=== PATIENT | female | born 1980 | race Caucasian/White ===

== ENCOUNTER 2017-07-08 08:13 | Inpatient (IN) | payer OTHER ==
[~2017-07-08] VITALS: Ht 162.6 cm; Wt 78.0 kg
--- NOTE | 2017-07-08 09:08 | History & Physical ---
General Information and HPI MD Statement: I have seen and personally examined JOSE CRUZ BREWSETR and documented this H&P. The patient is a 37 year old female at [39] weeks and [6] days gestation who presented with a chief complaint of [CTXS]. Source of Information: patient Exam Limitations: no limitations History of Present Illness: 37 yo, , at 39 6/7wks, c/o cxts sicne this AM, also some LOF since 2017, very small amount. reports GFM,amnisure positive. care started at 9 wks, uncomplicated thus far. AMA, GBS negative. 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 Para: 1 Last Menstrual Period: 09/26/2016 Estimated Delivery Date: 07/09/2017 Past dog daycare provider History: non-contributory Past Pregnancies Past Pregnancies: Date of Delivery: 01/2010 Weight: [id number] Type of Delivery: vaginal Anesthesia: epidural Medical History Blood Transfusion Hx: No Neurological: seizure (as a child around 14 y) EENT: NONE Cardiovascular: NONE Respiratory: NONE Gastrointestinal: NONE Hepatic: NONE Renal: NONE Musculoskeletal: NONE Psychiatric: NONE Endocrine: NONE Blood Disorders: NONE Cancer(s): NONE REAL ESTATE ADMINISTRATIVE ASSISTANT/Reproductive: NONE Surgical History Pertinent Surgical History: non-contributory Past Family/Social History Psychosocial History Where do you live? Home Smoking Status: Never Smoked ETOH Use: denies use Illicit Drug Use: denies illicit drug use Review of Systems Review of Systems Constitutional: Reports: no symptoms. EENTM: Reports: no symptoms. Cardiovascular: Reports: no symptoms. Respiratory: Reports: no symptoms. GI: Reports: no symptoms. Genitourinary: Reports: see HPI. Musculoskeletal: Reports: no symptoms. Skin: Reports: no symptoms. Neurological/Psychological: Reports: no symptoms. Hematologic/Endocrine: Reports: no symptoms. Immunologic/Allergic: Reports: see HPI. All Other Systems: Reviewed and Negative Post Menopausal: No Exam & Diagnostic Data Obstetric Exam Wgt Gained During : 37lbs Pelvimetry: tested [id number] Dilation (cm): 2 Effacement (%): 80 Station: 0 Membranes: SROM Fluid: clear Fundal Height (cm): 39 Multiple Gestation? No Contractions: irregular Infant #1 - FHR Baseline: 140 Category: 1 Estimated Weight: 3500g Presentation: vertex Patient for Induction? No Physical Exam: VSS General: NAD Abdomen: gravid, soft, nontender. Ext: DCT (-) Labs Blood Type & Rh: A positive Antibody Screen: negative Hct/Hgb & Platelets #1: 13/41.8%,PLT [id number] Hct/Hgb & Platelets #2: 12.1/38.7%,[id number] Rubella: immune VDRL #1: negative VDRL #2: negative HbsAg: negative HIV #1: negative HIV #2 negative 1 Hr P Group B Strep: negative Initial Ultrasound: IUP at 9 wks Anatomy Ultrasound: nl Genetic Testing: declined Last 24 Hrs of Labs/Christian: Laboratory Tests 07/08/17 0835: Membrane Rupture POSITIVE, Urine Color YEL, Urine Clarity CLEAR, Urine pH 6.0, Ur Specific [place] 1.015, Urine Protein NEG, Urine Ketones NEG, Urine Nitrite NEG, Urine Bilirubin NEG, Urine Urobilinogen 0.2, Ur Leukocyte Esterase NEG, Ur Microscopic SEDIMENT EXAMINED, Urine RBC 1-3, Urine WBC 1-3 H, Ur Epithelial Cells MANY H, Urine Bacteria FEW H, Urine Mucus RARE, Urine Hemoglobin TRACE-LYSED, Urine Glucose NEG Assessment/Plan Assessment/Plan: 37yo, 39 6/7wks, SROM, early labor 1. admit pt, admission labs 2. ? prolonged SROM, may consider antibiotics prophylaxis 3. will condier pitocin augmentation 4. monitor closely As Ranked By This Provider Problem List: 1. 2. SROM (spontaneous rupture of membranes) Core Measures Venous Thromboembolism VTE Risk Factors / No Mechanical VTE Prophylaxis d/t LowRisk-No Interven Req'd No VTE Pharm Prophylaxis d/t LowRisk-No Intervreji Cuevas'linda Attending MD Review Statement Attending Statement Attending MD Statement: examined this patient, discussed w/nursing
[2017-07-08 09:33] LABS: ABSOLUTE BASOPHIL COUNT 0 /CUMM (0.0-0.2); ABSOLUTE EOSINOPHIL COUNT 0 /CUMM (0.0-0.7); ABSOLUTE GRANULOCYTE CT 7.2 /CUMM (1.4-6.5); ABSOLUTE LYMPH COUNT 1.6 /CUMM (1.2-3.4); ABSOLUTE MONOCYTE COUNT 0.5 /CUMM (0.10-0.60); BASOPHIL % 0.4 % (0.0-2.0); EOSINOPHIL % 0.5 % (0-5); GRANULOCYTE % 76.8 % (42.2-75.2); HEMATOCRIT 35.9 % (37-47); MEAN CORPUSCULAR HGB 28.6 PG (27.0-31.0); MEAN CORPUSCULAR HGB CONC 33.6 G/DL (33.0-37.0); MEAN PLATELET VOLUME 9.6 FL (7.4-10.4); PLATELET COUNT 201 /CUMM (130-400); RBC DISTRIBUTION WIDTH 15.7 % (11.5-14.5); RED BLOOD CELL CT 4.22 /CUMM (4.20-5.40); WHITE BLOOD CELL COUNT 9.4 /CUMM (4.8-10.8)
--- NOTE | 2017-07-08 15:54 | PN- OBGYN ---
Surgical Brief Attending Note Brief Attending Note: pt c/o ctxs pain ,request epidural.pitocin at 7 mU/min on TOCO: ctxs q 2-3 min, FHR baseline 130, moderate variability, + acels, no decels cervix 6/100/0( per RN) anesthesia notified. will continue monitor closely
--- NOTE | 2017-07-08 17:36 | Labor & Delivery Summary ---
Delivery Summary Vaginal Delivery: Vaginal: vertex Episiotomy/Lacerations: Episiotomy/Lacerations: none Placenta: Placenta: spontanteous, normal, 3 vessel, nuchal cord (x_) (X1) Anesthesia: epidural Baby's Weight: 5md45be Apgars - 1 Min: 9 Apgars - 5 Min: 9 Additional Comments: Patient fully dilated, pushed well, spontaneously delivered a viable male as cephalic presentation, GABINO position, nuchal cord 1, head delivered atraumatically, followed by shoulder and rest of the body without difficulty. Baby vigorous and cried, place on mother's chest, cord clamp and cut. Placenta delivered spontaneously, intact, three-vessel cord. EBL 486 mL. Perineum intact. Patient tolerated the procedure well, laps and instruments counts were correct, patient and baby in recovery room in stable condition.
[2017-07-09 08:43] LABS: ABSOLUTE BASOPHIL COUNT 0 /CUMM (0.0-0.2); ABSOLUTE GRANULOCYTE CT 9.6 /CUMM (1.4-6.5); GRANULOCYTE % 76.8 % (42.2-75.2)
[2017-07-09 09:07] LABS: ABSOLUTE EOSINOPHIL COUNT 0.1 /CUMM (0.0-0.7); ABSOLUTE LYMPH COUNT 2.1 /CUMM (1.2-3.4); ABSOLUTE MONOCYTE COUNT 0.7 /CUMM (0.10-0.60); BASOPHIL % 0.2 % (0.0-2.0); EOSINOPHIL % 0.6 % (0-5); MEAN CORPUSCULAR HGB 28.3 PG (27.0-31.0); MEAN CORPUSCULAR HGB CONC 33.5 G/DL (33.0-37.0); MEAN CORPUSCULAR VOLUME 84.6 FL (81.0-99.0); MEAN PLATELET VOLUME 9.2 FL (7.4-10.4); PLATELET COUNT 187 /CUMM (130-400); RBC DISTRIBUTION WIDTH 16.2 % (11.5-14.5); WHITE BLOOD CELL COUNT 12.5 /CUMM (4.8-10.8)
[2017-07-09 09:11] LABS: HEMATOCRIT 28.7 % (37-47)
--- NOTE | 2017-07-09 12:36 | PN- Post Delivery/GYN ---
Subjective Subjective: PT C/O LOWER HEAD, NECK AND SHOULDER PAIN SINCE AM. S/P WET TAP FOR EPIDURAL. RECEIVING IV FLUIDS, CAFFEINE, NSAIDS AND TYLENOL, ICE PACKS AND LAYING FLAT WITH SOME IMPROVEMENT OF SX. DECLINES BLOOD PATCH. AMB / VOID / MARJORIE PO. Objective Last 24 Hrs of Vital Signs/I&O AFEB, V/SS Physical Exam: NAD ABD SOFT NT FF BELOW UMB ELIECER MIN LOCHIA EXT NT NO EDEMA Current Medications: Current Medications Sig/Catie Start time Last Medication Dose Route Stop Time Status Admin Acetaminophen 1,000 MG Q6P PRN 07/08 2345 AC 07/09 N/A 1 UNIT IV 1031 Acetaminophen 650 MG Q4P PRN 07/08 184 AC PO Butorphanol Tartrate 1 MG Q4P PRN 07/08 0915 DC 07/08 IV 1114 Butorphanol Tartrate 1 MG Q4P PRN 07/08 0915 DC 07/08 IM 1118 Chloroprocaine HCl 30 ML .STK-MED ONE 07/08 1608 DC IV 07/08 1609 Docusate Sodium 100 MG BID PRN 07/08 184 AC PO Guaifenesin 10 ML Q4P PRN 07/08 2345 AC 07/09 PO 0818 Ibuprofen 800 MG .STK-MED ONE 07/09 0215 DC PO / 0216 Ibuprofen 800 MG Q6P PRN / 2300 AC 07/09 PO 0817 Ibuprofen 800 MG Q6P PRN / 1745 DC / PO 1738 Lactated Ringer's 1,000 ML Q6H 07/09 1030 AC 07/09 IV 1031 Lactated Ringer's 1,000 ML Q8H 07/08 0915 DC 07/08 IV 1035 Methylergonovine 0.2 MG ONCE ONE 07/08 2100 DC 07/08 Maleate IM 07/08 2101 2110 Oxycodone/ 1 TAB Q3P PRN 07/08 184 AC / Acetaminophen PO 2135 Oxytocin 20 UNITS ONCE ONE 07/08 2100 DC / Lactated Ringer's 1,000 ML IV 07/09 0459 2110 Oxytocin 20 UNITS Q5H 07/08 184 DC Lactated Ringer's 1,000 ML IV 07/08 2344 Oxytocin 30 UNITS PER PROTOCL 07/08 0815 DC 07/08 Lactated Ringer's 500 ML IV 03/06 0914 1002 Last 24 Hrs of Labs/Christian: Laboratory Tests 07/09/17 0815: CBC w Diff NO MAN DIFF REQ, RBC 3.40 L, MCV 84.6, MCH 28.3, MCHC 33.5, RDW 16.2 H, MPV 9.2, Gran % 76.8 H, Lymphocytes % 16.5 L, Monocytes % 5.9, Eosinophils % 0.6, Basophils % 0.2, Absolute Granulocytes 9.6 H, Absolute Lymphocytes 2.1, Absolute Monocytes 0.7 H, Absolute Eosinophils 0.1, Absolute Basophils 0 Microbiology 07/08 1600 URINE ROUT: Urine Culture - RES Assessment/Plan Assessment/Plan PPD 1 S/P C/B SPINAL ZHENG AND MUSCULOSKELETAL NECK AND SHOULDER PAIN -CONT CURRENT MGMT -IF NO IMPROVEMENT TOMORROW CONSIDER BLOOD PATCH -ROUTINE PP CARE
[2017-07-10] MEDS ORDERED: FERROUS SULFAT325 M3 PO (09:17)
[2017-07-10] MEDS ORDERED: IBUPROFEN800 M1 PO (09:17)
--- NOTE | 2017-07-10 09:23 | PN- OBGYN ---
Surgical Brief Attending Note Brief Attending Note: PPD#2 pt is resting in bed, she received patch for spinal headache by anesthesia, headache improved, currently no complaints PE: VSS Cv RRR lungs CTA B/L Abdomen: soft, nontender, uterus firm, fundus below umbilicus, lochia mild Ext: DCT (-) A/P: 37yo, s/p , s/p blood patch for spinal headach. PPD#2 1. encouarge ambulation 2. RT PP care 3. will d/c home, f/u in office in 2 wks and 6 wks, dischatrge instructions given. she understand.
== END 2017-07-10 12:20 | DRG 775 ==
LOC: CBCO 08:13 → GNO 08:54 → CBCO 07-09 08:00 → GNO 07-10 12:20
PROVIDERS: Obstetrics & Gynecology
PROC: 10E0XZZ Delivery of Products of Conception, External Approach (ICD-10-PCS; principal; 2017-07-08)
DX: O69.81X0 Labor and delivery complicated by cord around neck, without compression, not applicable or unspecified (principal); O89.4 Spinal and epidural anesthesia-induced headache during the puerperium; Z37.0 Single live birth; Z3A.39 39 weeks gestation of pregnancy; T88.59XA Other complications of anesthesia, initial encounter; Z88.2 Allergy status to sulfonamides
CPT/HCPCS: GNOS; 81001; 84112; 87086; J0131; J2210; J7120

== ENCOUNTER → 2017-09-07 | Day surgery (SDC) | payer OTHER ==
[~2017-09-07] VITALS: Ht 162.6 cm; Wt 64.4 kg
[~2017-09-07] MED LIST: FERROUS SULFAT325 M3 PO; IBUPROFEN800 M1 PO
[2017-09-07 06:58] VITALS: BP 122/87
--- NOTE | 2017-09-07 08:02 | ED GI/GU/ABDOMINAL COMPLAINT ---
History of Present Illness General Chief Complaint: Female Urogenital Problems Stated Complaint: SENT IN BY DR BANKS FOR A DNC Source: patient, old records Exam Limitations: no limitations Vital Signs & Intake/Output Vital Signs & Intake/Output Vital Signs Date Time Temp Pulse Resp B/P B/P Pulse O2 O2 Flow FiO2 Mean Ox Delivery Rate 09/07 0558 95.8 81 16 122/87 98 Room Air Room Air Allergies Coded Allergies: Fish Containing Products (Mild, ABDOMINAL CRAMPING 07/08/17) milk (Mild, ABDOMINAL CRAMPING 07/08/17) soy (Mild, ABDOMINAL CRAMPING 07/08/17) wheat (Mild, ABDOMINAL CRAMPING 07/08/17) Sulfa (Sulfonamide Antibiotics) (hives 07/08/17) Uncoded Allergies: APPLE JUICE (Mild, ABDOMINAL CRAMPING 07/08/17) BEETS (Mild, ABDOMINAL CRAMPING 07/08/17) CARROT JUICE (Mild, ABDOMINAL CRAMPING 07/08/17) Reconcile Medications Ferrous Sulfate 325 MG (65 MG IRON) TABLET 1 TAB PO DAILY ANEMIA Ibuprofen 800 MG TABLET 800 MG PO Q6P PRN UTERINE CRAMPING Triage Note: 37YO FEMALE TO TRIAGE SENT IN BY DR DUBOIS FOR D&C. PT STATES SHE "WAS SEEN BY HER YESTERDAY AND INSTRUCTED TO COME HERE" Triage Nurses Notes Reviewed? yes LMP (ages 10-50): unknown ? n Is pt currently ? No Onset: since July delivery Duration: week(s):, constant, continues in ED Timing: recent history Quality/Severity: moderate Location: vaginal Radiation: no radiation Activities at Onset: rest Prior Abdominal Problems: none Past Sexual History: Unobtainable at this time No Modifying Factors: none HPI: Patient presents for continued vaginal bleeding after normal spontaneous vaginal delivery July 08. She denies fever chills nausea vomiting diarrhea chest pain cough shortness of breath headache dysuria rash. Past History Travel History Traveled to [place] past 21 day No Medical History Any Pertinent Medical History? see below for history Neurological: seizure (as a child around 14 y) EENT: NONE Cardiovascular: NONE Respiratory: NONE Gastrointestinal: NONE Hepatic: NONE Renal: NONE Musculoskeletal: NONE Psychiatric: NONE Endocrine: NONE Blood Disorders: NONE Cancer(s): NONE ADULT MANAGER/Reproductive: NONE Surgical History Surgical History: non-contributory Psychosocial History What is your primary language Moh[place] Tobacco Use: Never used Family History Hx Contributory? No Review of Systems Review of Systems Constitutional: Reports: no symptoms. EENTM: Reports: no symptoms. Respiratory: Reports: no symptoms. Cardiovascular: Reports: no symptoms. GI: Reports: no symptoms. Genitourinary: Reports: see HPI. Musculoskeletal: Reports: no symptoms. Skin: Reports: no symptoms. Neurological/Psychological: Reports: no symptoms. Hematologic/Endocrine: Reports: no symptoms. Immunologic/Allergic: Reports: no symptoms. All Other Systems: Reviewed and Negative Physical Exam Physical Exam General Appearance: well developed/nourished, alert, awake, comfortable Head: atraumatic, normal appearance Eyes: Bilateral: normal appearance, PERRL, EOMI, normal inspection. Ears, Nose, Throat, Mouth: hearing grossly normal, moist mucous membrane Neck: normal inspection, supple, full range of motion, normal alignment Respiratory: normal breath sounds, chest non-tender, no respiratory distress, quiet respiration, lungs clear Cardiovascular: regular rate/rhythm, normal peripheral pulses, norml femoral pulses equa Peripheral Pulses: 4+ carotid (R), 4+ carotid (L) Gastrointestinal: normal bowel sounds, soft, non-tender, no organomegaly Pelvic: deferred to ob Back: normal inspection, normal range of motion Extremities: normal range of motion, evidence of injury, pelvis stable Neurologic/Psych: no motor/sensory deficits, awake, alert, oriented x 3, normal gait, normal mood/affect, 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 No Sepsis Present: No Sepsis Focused Exam Completed? No Progress Differential Diagnosis: dysfunctional uterine bleeding Plan of Care: Orders Procedure Date/time Status CBC WITHOUT DIFFERENTIAL 09/08 731 Active TYPE & SCREEN (NOT X-MATCH) 09/08 731 Active Initial ED EKG: none Departure Departure Time of Disposition: 0800 Disposition: STILL A PATIENT Condition: Stable Clinical Impression Primary Impression: Dysfunctional uterine bleeding Referrals: Jerry Srivastava MD (PCP/Family) Departure Forms: Customer Survey General Discharge Information OR/GI Note Spoke With: Tj Banks MD ED Treatment Decision: JOSE CRUZ BREWSTER requires urgent operative management or an emergent procedure that cannot be performed in the Emergency Room setting. Transport To: [facility]
--- NOTE | 2017-09-07 11:12 | History & Physical Pre-Op ---
General Information and HPI MD Statement: I have seen and personally examined JOSE CRUZ BREWSTER and documented this H&P. The patient is a 37 year old F who presented with a patient stated chief complaint of [? retaine POC]. Source of Information: patient, old records Exam Limitations: no limitations History of Present Illness: 37yo, s/p on 07/08/2017, uncomplicated labor and delivery and course. she was f/u with 6 wk visit on 08/16/2017, no issues. she started OCP for contraception, for last 1 wk , she had abnormal vaginal bleeidng , with odor. came to office yesterday for evaluation. U/S: show ? retained POC , scheduled for D+C today. pt also report passed tissue-like material yesterday PM. today she has no complaints, denies any pain or other issues Allergies/Medications Allergies: Coded Allergies: Fish Containing Products (Mild, ABDOMINAL CRAMPING 07/08/17) milk (Mild, ABDOMINAL CRAMPING 07/08/17) soy (Mild, ABDOMINAL CRAMPING 07/08/17) wheat (Mild, ABDOMINAL CRAMPING 07/08/17) Sulfa (Sulfonamide Antibiotics) (hives 07/08/17) Uncoded Allergies: APPLE JUICE (Mild, ABDOMINAL CRAMPING 07/08/17) BEETS (Mild, ABDOMINAL CRAMPING 07/08/17) CARROT JUICE (Mild, ABDOMINAL CRAMPING 07/08/17) Home Med list Ferrous Sulfate 325 MG (65 MG IRON) TABLET 1 TAB PO DAILY ANEMIA Ibuprofen 800 MG TABLET 800 MG PO Q6P PRN UTERINE CRAMPING Compliance With Home Meds: GOOD Past History Medical History Neurological: seizure (as a child around 14 y) EENT: NONE Cardiovascular: NONE Respiratory: NONE Gastrointestinal: NONE Hepatic: NONE Renal: NONE Musculoskeletal: NONE Psychiatric: NONE Endocrine: NONE Blood Disorders: NONE Cancer(s): NONE SENIOR CHEMIST/Reproductive: NONE Surgical History Pertinent Surgical History: non-contributory Past Family/Social History Psychosocial History Smoking Status: Never Smoked ETOH Use: denies use Illicit Drug Use: denies illicit drug use Review of Systems Review of Systems Constitutional: Reports: no symptoms. EENTM: Reports: no symptoms. Cardiovascular: Reports: no symptoms. Respiratory: Reports: no symptoms. GI: Reports: no symptoms. Genitourinary: Reports: see HPI. Musculoskeletal: Reports: no symptoms. Skin: Reports: no symptoms. Neurological/Psychological: Reports: no symptoms. Hematologic/Endocrine: Reports: no symptoms. Immunologic/Allergic: Reports: no symptoms. All Other Systems: Reviewed and Negative Exam & Diagnostic Data Last 24 Hrs of Vital Signs/I&O Vital Signs Date Time Temp Pulse Resp B/P B/P Pulse O2 O2 Flow FiO2 Mean Ox Delivery Rate 09/07 0658 35.4 81 16 122/87 98 Room Air Room Air Intake & Output 09/07 1600 09/07 0800 09/07 0000 Intake Total Output Total Balance Patient 64.41 kg Weight Physical Exam: VSS General: NAD Cv RRR Lungs CTA B/L Abdomen: soft, nontender ext: DCT (-) Assessment/Plan Assessment/Plan: 37yo, s/p 07/08/2017, abnormal bleeding,? retained POC 1. addmit pt, admission labs 2. R/B/A of dilation and curettage discussed with the patient, she understand, all questions answered, informed consent obtained. 3. prepare for OR, OR team informed As Ranked By This Provider Problem List: 1. Retained products of conception Copies To: Darren GURROLA,Tj Philippe MD Review Statement Attending Statement Attending MD Statement: examined this patient, discussed with family
--- NOTE | 2017-09-07 13:05 | Operative Report ---
Operative/Inv Procedure Report Surgery Date: 09/07/17 Name of Procedure: Dilation and curettage Pre-Operative Diagnosis: Status post normal vaginal delivery, abnormal vaginal bleeding, questionable retained products of conception Post-Operative Diagnosis: Same Estimated Blood Loss: scant Surgeon/Water Hauler: Tj Banks MD Anesthesia: moderate sedation IV Fluids: Lactated Ringer's Specimens: [place] Complications: None Condition: Stable Operative Indication: 37-year-old, status post normal vaginal delivery on 07/08/2017, abnormal vaginal bleeding for 1 week, ultrasound show questionable retained products of conception. Operative/Procedure Note Note: Patient was taken to the operating room where IV sedation was obtained without difficulty. Patient was then examined under anesthesia and found to have a anteverted uterus with normal adnexa. She was then placed in the dorsal lithotomy position and prepared and draped in the usual sterile fashion. A bivalve speculum was then placed in the patient's vagina and the anterior lip of the cervix grasped with the single-tooth tenaculum. Uterus was gently sounded to 9.5 cm. Our sharp curettage was then performed until a gritty texture was noted. All the specimen sent for pathology there was minimum bleeding noted and the tenaculum removed with good hemostasis noted. Patient tolerated the procedure well. The patient was taken to the recovery room area in stable condition. Findings: Anteverted uterus , sounded to 9.5 cm, small amount tissue removed CC: Tj Banks MD
== END ==
LOC: ERH 06:52 → STS 08:00
DX: O72.2 Delayed and secondary postpartum hemorrhage (principal); N71.1 Chronic inflammatory disease of uterus
CPT/HCPCS: 88305; J0690